=== PATIENT | male | born 1995 | race Caucasian/White ===

== ENCOUNTER 2016-12-20 15:34 | Emergency (ER) | payer BC ==
[~2016-12-20] VITALS: Ht 193 cm; Wt 91.0 kg
[2016-12-20 15:45] VITALS: TEMP 36.9; Ht 193 cm; Wt 91.0 kg
[2016-12-20] MEDS ORDERED: DICYCLOMINE HCL 20 MG TAB PO ONE (16:30)
[2016-12-20] MEDS ORDERED: SODIUM CHLORIDE 0.9% 1000ML 1,000 ML IV ONE ×2 (16:30)
--- NOTE | 2016-12-20 16:34 | EMERGENCY ROOM VISIT NOTE ---
History First contact with patient: 16:13 Chief Complaint: DIARRHEA Stated Complaint: FEVER, STOMACH PAIN, VOMITING, DIZZY History of Present Illness The patient is a 21 year old male who presents to the Emergency Room with complaints of nausea, vomiting and diarrhea that started this morning. The patient also felt feverish with chills and body aches. He did not take his temperature at home. He denies any dark or bloody stools. No hematemesis or coffee-ground emesis. He denies any sick contacts. He did take antibiotics approximately one month ago for a cold. Those symptoms have resolved. He denies any urinary symptoms. Review of Systems 10 system review performed and negative unless noted in HPI or below Past Medical/Surgical History Otherwise healthy Social History Smoking Status: Never Smoker Alcohol Use: occasionally Occupation Status: [employer] Current/Historical Medications Scheduled Dicyclomine Hcl (Bentyl), 1 CAP PO TID Scheduled PRN Promethazine Hcl (Phenergan), 25 MG PO Q6H PRN for Nausea Physical Exam Vital Signs Date Time Temp Pulse Resp B/P (MAP) Pulse Ox O2 Delivery O2 Flow Rate FiO2 12/20/16 20:17 67 17 137/82 99 12/20/16 17:59 88 16 139/74 99 Room Air 12/20/16 15:45 36.9 89 16 134/80 98 Room Air Physical Exam VITALS: Vitals are noted on the nurse's note and reviewed by myself. Vital signs stable. GENERAL: 21-year-old male, in no acute distress, nondiaphoretic, well-developed well-nourished. SKIN: The skin was without rashes, erythema, edema, or bruising. HEAD: Normocephalic atraumatic. MOUTH: Mucous membranes dry NECK:No JVD. HEART: Regular rate and rhythm without murmurs gallops or rubs. LUNGS: Clear to auscultation bilaterally without wheezes, rales or rhonchi. No accessory muscle use. ABDOMEN: Positive bowel sounds x 4.Soft, nontender, without organomegaly. No guarding or rebound tenderness. MUSCULOSKELETAL: No muscle atrophy, erythema, or edema noted.. Strength 5/5 throughout. NEURO: Patient was alert and oriented to person place and time. Normal sensation to touch. No focal neurological deficits. Medical Decision & Procedures Laboratory Results 12/20/16 17:00 Red Blood Count 5.82, Mean Corpuscular Volume 83.2, Mean Corpuscular Hemoglobin 31.4, Mean Corpuscular Hemoglobin Concent 37.8, Mean Platelet Volume 9.9, Neutrophils (%) (Auto) 93.6, Lymphocytes (%) (Auto) 2.3, Monocytes (%) (Auto) 3.1, Eosinophils (%) (Auto) 0.1, Basophils (%) (Auto) 0.1, Neutrophils # (Auto) 9.68, Lymphocytes # (Auto) 0.24, Monocytes # (Auto) 0.32, Eosinophils # (Auto) 0.01, Basophils # (Auto) 0.01 12/20/16 17:00 Test 12/20/16 17:00 White Blood Count 10.34 K/uL (4.8-10.8) Red Blood Count 5.82 M/uL (4.7-6.1) Hemoglobin 18.3 g/dL (14.0-18.0) Hematocrit 48.4 % (42-52) Mean Corpuscular Volume 83.2 fL (80-100) Mean Corpuscular Hemoglobin 31.4 pg (25-34) Mean Corpuscular Hemoglobin Concent 37.8 g/dl (32-36) Platelet Count 163 K/uL (130-400) Mean Platelet Volume 9.9 fL (7.4-10.4) Neutrophils (%) (Auto) 93.6 % Lymphocytes (%) (Auto) 2.3 % Monocytes (%) (Auto) 3.1 % Eosinophils (%) (Auto) 0.1 % Basophils (%) (Auto) 0.1 % Neutrophils # (Auto) 9.68 K/uL (1.4-6.5) Lymphocytes # (Auto) 0.24 K/uL (1.2-3.4) Monocytes # (Auto) 0.32 K/uL (0.11-0.59) Eosinophils # (Auto) 0.01 K/uL (0-0.5) Basophils # (Auto) 0.01 K/uL (0-0.2) RDW Standard Deviation 37.7 fL (36.4-46.3) RDW Coefficient of Variation 12.8 % (11.5-14.5) Immature Granulocyte % (Auto) 0.8 % Immature Granulocyte # (Auto) 0.08 K/uL (0.00-0.02) Anion Gap 10.0 mmol/L (3-11) Est Creatinine Clear Calc Drug Dose 141.0 ml/min Estimated GFR () 122.4 Estimated GFR (Non- 105.6 BUN/Creatinine Ratio 14.4 (10-20) Calcium Level 9.8 mg/dl (8.5-10.1) Magnesium Level 1.6 mg/dl (1.8-2.4) Total Bilirubin 1.1 mg/dl (0.2-1) Aspartate Amino Transf (AST/SGOT) 14 U/L (15-37) Alanine Aminotransferase (ALT/SGPT) 28 U/L (12-78) Alkaline Phosphatase 68 U/L (45-117) Total Protein 7.7 gm/dl (6.4-8.2) Albumin 4.5 gm/dl (3.4-5.0) Globulin 3.2 gm/dl (2.5-4.0) Albumin/Globulin Ratio 1.4 (0.9-2) Lipase 72 U/L (73-393) Medications Administered Medications (Trade) Dose Ordered Sig/Carlyle Route Start Time Stop Time Status Last Admin Dose Admin Sodium Chloride 1,000 ml @ 999 mls/hr Q1H1M ONCE IV 12/20/16 16:30 12/20/16 17:30 DC 12/20/16 16:58 999 MLS/HR Sodium Chloride 1,000 ml @ 999 mls/hr Q1H1M ONCE IV 12/20/16 16:30 12/20/16 17:30 DC 12/20/16 16:58 999 MLS/HR Ondansetron HCl (Zofran Inj) 4 mg Q2H PRN IV 12/20/16 16:30 12/20/16 20:47 DC 12/20/16 17:59 4 MG Dicyclomine HCl (Bentyl Cap) 10 mg STK-MED ONCE .ROUTE 12/20/16 16:42 12/20/16 16:43 DC 12/20/16 16:59 20 MG Magnesium Sulfate (Magnesium Sulfate) 1 gm NOW STAT IV 12/20/16 17:47 12/20/16 17:49 DC 12/20/16 18:23 1 GM Promethazine HCl (Phenergan 25MG Home Pack) 1 homepack UD ONCE PO 12/20/16 19:00 12/20/16 19:01 DC 12/20/16 19:11 1 [facility] ED Course Patient was seen and examined Vital signs including blood pressure were reviewed medications list was verified with patient Labs were obtained, and a saline lock was established The patient was given Zofran 4 mg IV and Bentyl 20 mg po. He was hydrated with 2 L normal saline Upon reevaluation, the patient was still complaining of mild nausea. He was given an additional dose of Zofran 4 mg IV. His labs were reviewed. There were discussed with the patient. He was given 1 g of magnesium sulfate IV He was feeling much better. He was tolerating crackers and andrea analilia. I reviewed discharge instructions the patient. They voiced understanding and had no further questions. Medical Decision DIFFERENTIAL DIAGNOSIS: Gastroenteritis, Hepatitis, cholecystitis, cholangitis, biliary colic, pancreatitis, appendicitis, inguinal hernia, nephrolithiasis, inflammatory bowel disease, mesenteric adenitis, peptic ulcer disease, GERD, gastritis, pancreatitis,, bowel obstruction, splenic infarct, diverticulitis, mesenteric ischemia, metabolic, peritonitis, among others. This patient is a 21-year-old male that presented with vomiting and diarrhea. He also complains of feverish symptoms. He is afebrile here. There is no leukocytosis. On exam, he appears dry. There is no focal tenderness in his abdomen. I did not find imaging necessary. He had good symptomatic relief in the emergency department. He was discharged home with a prescription for Phenergan and Bentyl. He was instructed on supportive care such as fluids and clear liquid diet. He will follow-up with his primary care physician for persistent symptoms or return here for worsening symptoms. Medication Reconcilliation Current Medication List: was personally reviewed by me Blood Pressure Screening Patient's blood pressure: Normal blood pressure Impression Primary Impression: Vomiting and diarrhea Departure Information Dispostion Home / Self-Care Condition GOOD Prescriptions Dicyclomine Hcl (BENTYL) 10 Mg Cap 1 CAP PO TID for abdominal pain, #15 CAP 1 Refill Prov: Nkechi Ramírez PA-C 12/20/16 Promethazine Hcl (Phenergan) 25 Mg Tab 25 MG PO Q6H Y for Nausea, #15 TAB Prov: Nkechi Ramírez PA-C 12/20/16 Referrals No Doctor, Assigned (PCP) Patient Instructions ED Vomiting Diarrhea Nonspecific Ad, My [facility] Additional Instructions You were evaluated in the emergency department for vomiting and diarrhea. This is likely a viral illness that will run its course. Please increase your fluid intake over the next 48 hours. If you are still nauseated, please have only clear liquids this evening. This includes things like andrea analilia, Sprite, popsicles and broth. If you are feeling better tomorrow, you may advance to a bland diet such as toast and crackers Please take Phenergan every 6 hours as needed for nausea. Please take Bentyl every 8 hours for abdominal cramping or pain. Both of these medications can make you sleepy. Please do not drug alcohol or drive well taking his medications. Please follow-up with your primary care physician or [place] [facility] if your symptoms persist greater than 3 days. Please return to the emergency department with any new or worsening symptoms School Instructions Return To School: 1 day (please excuse on 12/20/16)
[2016-12-20] MEDS ORDERED: DICYCLOMINE HCL 10 MG CAP ONE (16:42)
[2016-12-20] MEDS: ONDANSETRON INJ 2 MG/ML 2 ML VIAL IV PRN ×2 (16:59→17:59)
[2016-12-20 17:13] LABS: BASO % 0.1 %; BASO ABS # 0.01 K/uL (0-0.2); COMPLETE YES; EOS % 0.1 %; HEMATOCRIT 48.4 % (42-52); IG% 0.8 %; LYMPH % 2.3 %; LYMPH ABS # 0.24 K/uL (1.2-3.4); MEAN CELL VOLUME 83.2 fL (80-100); MEAN CORPUSCULAR HEMOGLOBIN 31.4 pg (25-34); MEAN CORPUSCULAR HGB CONC 37.8 g/dl (32-36); MEAN PLATELET VOLUME 9.9 fL (7.4-10.4); MONO % 3.1 %; NEUT % 93.6 %; PLATELET COUNT 163 K/uL (130-400); RED BLOOD COUNT 5.82 M/uL (4.7-6.1); WHITE BLOOD COUNT 10.34 K/uL (4.8-10.8)
[2016-12-20 17:37] LABS: BUN/CREATININE RATIO 14.4 (10-20); CALCIUM 9.8 mg/dl (8.5-10.1); MAGNESIUM 1.6 mg/dl (1.8-2.4); POTASSIUM 3.9 mmol/L (3.5-5.1)
[2016-12-20 17:40] LABS: ALB/GLOB RATIO 1.4 (0.9-2)
[2016-12-20] MEDS ORDERED: MAGNESIUM SULFATE 1GM / D5W 1 GM BAG IV STA (17:47)
[2016-12-20] MEDS ORDERED: PHENERGAN 25MG HOMEPACK PO ONE (19:00)
[2016-12-20] MEDS ORDERED: PROM25TA9 PO (19:46)
[2016-12-20] MEDS ORDERED: DICY10CA55 PO (19:46)
[2016-12-20 20:17] VITALS: BP 137/82; PULSE 67; O2SAT 99
== END 2016-12-20 20:19 | disposition home or self-care (01) ==
LOC: C.EDB 15:36
DX: R11.2 Nausea with vomiting, unspecified (principal); R19.7 Diarrhea, unspecified